=== PATIENT | male | born 1985 | race Caucasian/White ===

== ENCOUNTER 2017-01-12 22:23 | Emergency (ER) | payer BC ==
[2017-01-12 22:34] VITALS: BP 142/97
--- NOTE | 2017-01-12 23:42 | EDM.PDOC ---
ED HPI GENERAL MEDICAL PROBLEM - General Chief Complaint: ENT Problem Stated Complaint: SOFTBALL TO FACE POSS BROKEN NOSE Time Seen by Provider: 01/12/17 23:32 - History of Present Illness INITIAL COMMENTS - FREE TEXT/NARRATIVE: 31-year-old male presents emergency room with a nose injury. Shortly before arrival to the emergency room. She was playing softball he went to catch a ball that was hit his direction off of back it bounced up high in his him in the nose. He has some deformity and a nosebleed. Patient has not had problems with his nose in the past. Patient denies any other associated injuries. Last tetanus shot was 5-6 years ago. Nose Pain Score (Numeric/FACES): 3 - Related Data Allergies Allergy/AdvReac Type Severity Reaction Status Date / Time No Known Allergies Allergy Verified 01/12/17 22:34 Home Meds: Home Meds . [No Known Home Meds] 01/12/17 [History] Past Medical History - Past Health History Medical/Surgical History: Denies Medical/Surgical History Social & Family History - Tobacco Use Smoking Status *Q: Current Every Day Smoker Years of Tobacco use: 13 Packs/Tins Daily: 1 - Caffeine Use Caffeine Use: Reports: Coffee, Energy Drinks - Recreational Drug Use Recreational Drug Use: No ED ROS ENT - Review of Systems Review Of Systems: See Below Constitutional: Reports: No Symptoms HEENT: Reports: Nose Pain Respiratory: Reports: No Symptoms Cardiovascular: Reports: No Symptoms GI/Abdominal: Reports: No Symptoms ED EXAM, ENT - Physical Exam Exam: See Below Exam Limited By: No Limitations General Appearance: Alert, No Apparent Distress Eye Exam: Bilateral Eye: EOMI, Normal Inspection, PERRL Ears: Normal External Exam, Normal Canal, Hearing Grossly Normal, Normal TMs Nose: Nasal Deformity, Other (Initially the patient had bleeding out of both sides of his nose he was allowed to blow his nose clear this was then suctioned clear questionable septal hematoma seen on the right. He had no more bleeding after this he has deformity to the left significant swelling. Thorough palpation of the facial bones does not reveal any other tenderness. Orbital rims are nontender. The patient's injuries were localized to the bridge of the nose. This was cleaned up he had a few superficial abrasions on the right side of the bridge of the nose) Mouth/Throat: Normal Inspection, Normal Gums, Normal Lips, Normal Oropharynx, Normal Teeth, Other (No loose teeth) Head: Atraumatic, Normocephalic Neck: Normal Inspection, Supple, Non-Tender, Full Range of Motion. No: Lymphadenopathy (L), Lymphadenopathy (R) Respiratory/Chest: No Respiratory Distress, Lungs Clear, Normal Breath Sounds Cardiovascular: Regular Rate, Rhythm, No Edema, No Murmur Course - Vital Signs Last Recorded V/S: Last Vital Signs Temp 36.1 C 01/12/17 22:31 Pulse 92 01/12/17 22:31 Resp 16 01/12/17 22:31 BP 142/97 H 01/12/17 22:31 Pulse Ox 97 01/12/17 22:31 - Re-Assessments/Exams Free Text/Narrative Re-Assessment/Exam: 01/13/17 00:[address] however I already know he hasn't O's fracture I think the probability of another fracture is exceedingly low the patient agrees to hold off on this at this point. Departure - Departure Time of Disposition: 00:34 Disposition: Home, Self-Care 01 Clinical Impression: Nasal bone fx-closed - Discharge Information Instructions: Nasal Fracture, [id number] Referrals: PCP,None [Primary Care Provider] - Forms: ED Department Discharge Additional Instructions: Return to the emergency room with any questions or problems. Follow-up with an pearler Dr. Gunter in [place]. [phone]. You been given some pain medication [place] take one or 2 every 6 hours as needed for pain allow 12 hours after using this medication before driving or returning to work use ibuprofen as needed for pain during the day. You have been started on amoxicillin this is an antibiotic take one 3 times a day until all gone.
== END 2017-01-13 00:43 | disposition home or self-care (01) ==
LOC: JD.ED 22:23
DX: S02.2XXA Fracture of nasal bones, initial encounter for closed fracture (principal); F17.210 Nicotine dependence, cigarettes, uncomplicated; W21.07XA Struck by softball, initial encounter
CPT/HCPCS: 99283

== ENCOUNTER 2019-02-27 14:39 | Emergency (ER) | payer BC ==
[2019-02-27 14:48] VITALS: BP 137/88
--- NOTE | 2019-02-27 15:00 | EDM.PDOC ---
ED HPI GENERAL MEDICAL PROBLEM - General Chief Complaint: Chest Pain Stated Complaint: CHEST/UPPER ABDOMINAL PAIN Time Seen by Provider: 02/27/19 14:55 Source of Information: Reports: Patient History Limitations: Reports: No Limitations - History of Present Illness INITIAL COMMENTS - FREE TEXT/NARRATIVE: 33-year-old male presents to the ED with recurrent sharp stabbing pains primarily in the pit of the stomach lower retrosternal chest and then radiates up towards his throat. It never reaches past the stricture sternal manubrial junction. Not radiate through his back. States is for the most part sharp and stabbing and will last minutes or so. He however any heartburn or indigestion. He does not usually have to use Tums or Rolaids. Has never vomited from the intensity of the discomfort. He has no pain it wakes him up in the night in the epigastrium to suggest dyspepsia. Has been having sharp stabbing pains off and on for the last 3-4 days. States he does drink alcohol socially. His cough or sputum production. Denies fever or chills. Smokes one pack of cigarettes daily. No previous abdominal surgery. He has no sensation of needing to burp or belch to relieve the discomfort. He has no true odynophagia. Onset: Sudden Onset Date: 02/24/19 Duration: Day(s):, Getting Worse, Intermittent (Intermittent sharp stabbing anterior chest pains for the last 3 days), Waxing/Waning Location: Reports: Chest (Lower retrosternal chest epigastrium.) Quality: Reports: Sharp, Stabbing Severity: Moderate Improves with: Reports: None (Relates to 6 out of 10 when it comes.) Worsens with: Reports: None Context: Denies: Activity, Exercise, Lifting, Sick Contact, Trauma, Other Associated Symptoms: Reports: Chest Pain. Denies: Confusion, Cough (Lower retrosternal chest pain and epigastric pain), cough w sputum, Diaphoresis, Fever /Chills, Headaches, Loss of Appetite, Malaise, Nausea/Vomiting, Rash, Seizure, Shortness of Breath, Syncope Treatments [employer]: Reports: Other (see below) (None.) Middle Chest Pain Score (Numeric/FACES): 2 - Related Data Allergies Allergy/AdvReac Type Severity Reaction Status Date / Time No Known Allergies Allergy Verified 02/27/19 14:48 Home Meds: Home Meds . 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 No recent chest wall injuries.) ED ROS GENERAL - Review of Systems Review Of Systems: See Below Constitutional: Reports: No Symptoms HEENT: Reports: No Symptoms Respiratory: Denies: Shortness of Breath, Wheezing, Pleuritic Chest Pain, Cough , Sputum, Hemoptysis, Other Cardiovascular: Reports: Chest Pain. Denies: Blood Pressure Problem, Claudication, Dyspnea on Exertion, Edema (See history of present illness), Lightheadedness, Orthopnea, Palpitations, Syncope Endocrine: Reports: No Symptoms GI/Abdominal: Reports: Abdominal Pain (Epigastric abdominal discomfort.) : Reports: No Symptoms Musculoskeletal: Reports: No Symptoms Skin: Reports: No Symptoms Neurological: Reports: No Symptoms Psychiatric: Reports: No Symptoms Hematologic/Lymphatic: Reports: No Symptoms Immunologic: Reports: No Symptoms ED EXAM, GENERAL - Physical Exam Exam: See Below Exam Limited By: No Limitations General Appearance: Alert, WD/WN, Anxious, Other (Mildly anxious. I'll assign show temperature 37.2 with a pulse of 70 and sinus. Respiratory 16. BP well is 137/88. O2 sats 98% on room air) Eye Exam: Bilateral Eye: Normal Inspection (No scleral icterus.) Head: Atraumatic, Normocephalic Neck: Normal Inspection, Supple, Non-Tender, Full Range of Motion. No: Lymphadenopathy (L), Lymphadenopathy (R) Respiratory/Chest: No Respiratory Distress, Lungs Clear, Normal Breath Sounds, No Accessory Muscle Use. No: Wheezing Cardiovascular: Normal Peripheral Pulses, Regular Rate, Rhythm, No Edema, No Gallop, No Murmur, No Rub Peripheral Pulses: 3+: Posterior Tibial (L), Posterior Tibial (R), Dorsalis Pedis (L), Dorsalis Pedis (R) GI/Abdominal: Normal Bowel Sounds, Soft, No Organomegaly, No Mass, Tender, Other (Negative Keating sign. No organomegaly.). No: No Distention, No Abnormal Bruit, Pelvis Stable (He is mildly tender on palpation in the epigastrium only.) Back Exam: Normal Inspection, Full Range of Motion. No: CVA Tenderness (L) Extremities: Normal Inspection, Normal Range of Motion, Non-Tender, No Pedal Edema Neurological: Alert, Oriented, CN II-XII Intact, Normal Cognition, Normal Gait Psychiatric: Normal Affect, Normal Mood Skin Exam: Warm, Dry, Intact, Normal Color, No Rash EKG INTERPRETATION EKG Date: 02/27/19 Time: 15:11 Rhythm: NSR Rate (Beats/Min): 75 Carey: Normal P-Wave: Enlarged (Consider left atrial hypertrophy.) QRS: Other (Initial poor R-wave progression which may be due to lead placement.) ST-T: Other (Irregular baseline in V1 not used for analysis.) QT: Normal EKG Interpretation Comments: Borderline ECG Course - Vital Signs Last Recorded V/S: Last Vital Signs Temp 37.2 C 02/27/19 14:46 Pulse 70 02/27/19 14:46 Resp 16 02/27/19 14:46 BP 137/88 02/27/19 14:46 Pulse Ox 98 02/27/19 14:46 - Orders/Labs/Meds Orders: Active Orders 24 hr Category Date Time Status EKG Documentation Completion [RC] STAT Care 02/27/19 14:55 Active Labs: Laboratory Tests 02/27/19 02/27/19 02/27/19 Range/Units 15:10 15:10 15:10 WBC 6.50 (4.23-9.07) K/mm3 RBC 5.03 (4.63-6.08) M/mm3 Hgb 15.7 (13.7-17.5) gm/L Hct 46.0 (40.1-51.0) % MCV 91.5 (79.0-92.2) fl MCH 31.2 (25.7-32.2) pg MCHC 34.1 (32.2-35.5) g/dl RDW Std Deviation 43.6 (35.1-43.9) fL Plt Count 224 (163-337) K/mm3 MPV 11.8 (9.4-12.3) fl Neut % (Auto) 66.6 (34.0-67.9) % Lymph % (Auto) 22.3 (21.8-53.1) % Mathews % (Auto) 9.1 (5.3-12.2) % Eos % (Auto) 1.2 (0.8-7.0) Baso % (Auto) 0.5 (0.1-1.2) % Neut # (Auto) 4.33 (1.78-5.38) K/mm3 Lymph # (Auto) 1.45 (1.32-3.57) K/mm3 Mathews # (Auto) 0.59 (0.30-0.82) K/mm3 Eos # (Auto) 0.08 (0.04-0.54) K/mm3 Baso # (Auto) 0.03 (0.01-0.08) K/mm3 Sodium 143 (136-145) mEq/L Potassium 4.1 (3.5-5.1) mEq/L Chloride 104 (98-107) mEq/L Carbon Dioxide 30 (21-32) mEq/L Anion Gap 13.1 (5-15) BUN 12 (7-18) mg/dL Creatinine 0.9 (0.7-1.3) mg/dL Est Cr Clr Drug Dosing 128.14 mL/min Estimated GFR (MDRD) > 60 (>60) mL/min BUN/Creatinine Ratio 13.3 L (14-18) Glucose 78 (74-106) mg/dL Calcium 9.0 (8.5-10.1) mg/dL Magnesium 2.2 (1.8-2.4) mg/dl Total Bilirubin 0.6 (0.2-1.0) mg/dL AST 19 (15-37) U/L ALT 38 (16-63) U/L Alkaline Phosphatase 92 (46-116) U/L Troponin I < 0.017 (0.00-0.056) ng/mL C-Reactive Protein 0.2 (<1.0) mg/dL Total Protein 8.2 (6.4-8.2) g/dl Albumin 4.2 (3.4-5.0) g/dl Globulin 4.0 gm/dL Albumin/Globulin Ratio 1.1 (1-2) Lipase 95 (73-393) U/L - Radiology Interpretation Free Text/Narrative:: 33-year-old male presents to the ED with intermittent sharp stabbing epigastric lower retrosternal chest pains for the last 3 days. He has come and gone may last up to 10 minutes. He has not appreciated any odynophagia. No nausea vomiting or hematemesis. No burning discomfort to suggest heartburn. No difficulties breathing. Denies cough or sputum production. Lungs are clear on auscultation heart is sinus with no murmurs identified. He is somewhat tender in the epigastrium only on examination. Plan routine labs. This include a serum troponin. Two-view chest x-ray to be done. I suspect the etiology is esophageal spasm at the lower esophageal sphincter. - Re-Assessments/Exams Free Text/Narrative Re-Assessment/Exam: 02/27/19 15:53 two-view chest x-ray is within normal limits as well. Both pulmonary arteries are easily visible. 02/27/19 15:56 Labs reveal a normal white count at 6.50 with auto differential showing 66% neutrophils. Hemoglobin is 15.7 with hematocrit of 46.0. Reticulocyte count 224,000. Sodium 143 with potassium of 4.1. Chloride 104 the bicarbonate 30. Anion gap is 13.1 B1 is 12 with a creatinine of 0.9. GFR is greater than 60. Glucose 78. Calcium 9.0 magnesium 2.2. Liver function normal C- reactive protein is 0.2. Normal at 95. 02/27/19 16:21 troponin came back at less than 0.017. Departure - Departure Time of Disposition: 16:25 Disposition: Home, Self-Care 01 Condition: Fair Clinical Impression: Non-cardiac chest pain, Esophagitis Instructions: Esophagitis, Nonspecific Chest Pain, [id number] Referrals: Doris Limon NP [Primary Care Provider] - Forms: ED Department Discharge Additional Instructions: Evaluation the emergency room today in regards to recurrent sharp stabbing pain felt in the pelvis stomach and rating up into the mid chest at times for the last 3 days. No associated feeling of need to burp or belch and no heartburn symptoms. Complete cardiac workup was carried out in the ED and reveals a normal ECG or heart tracing. Two-view of the chest also is completely normal. Aorta appears to be normal with no sign of aneurysm. Markers for heart attack and any other inflammation in regards to the heart were all negative. There is no evidence of heart related illness . I suspect the pain is coming from spasm of the lower food pipe or esophagus were joins onto the stomach right in the pit of the stomach. It is likely due to inflammation from reflux of acid contents some time in the 2-3 days before you started having pain. Suggest being careful with alcohol for the next week or so. Suggest using Zantac 150 milligrams twice daily bedtime and morning for the next 10 days to allow the food pipe to heal and then use it on an as-needed basis. - My Orders Last 24 Hours: My Active Orders 02/27/19 14:55 EKG Documentation Completion [RC] STAT - Assessment/Plan Last 24 Hours: My Active Orders 02/27/19 14:55 EKG Documentation Completion [RC] STAT
--- NOTE | 2019-02-27 15:32 | CR ---
Chest: Two views of the chest were obtained. Comparison: No previous chest x-ray. Heart size and mediastinum are normal. Lungs are clear. Bony structures are unremarkable. Impression: 1. Nothing acute is seen on two-view chest x-ray. Diagnostic code #1
== END 2019-02-27 16:36 | disposition home or self-care (01) ==
LOC: JD.ED 14:39
DX: K20.9 Esophagitis, unspecified (principal); F17.210 Nicotine dependence, cigarettes, uncomplicated
CPT/HCPCS: 36415; 71046; 71046-26; 80053; 83690; 83735; 84484; 85025; 86140; 93005; 93010; 99283; 99285-25

== ENCOUNTER 2025-05-21 13:12 | Emergency (ER) | payer BC ==
[2025-05-21] MEDS ORDERED: Sodium Chloride 0.9% 10 ML Syringe FLUSH PRN (13:38)
[2025-05-21] MEDS: Sodium Chloride 0.9% 10 ML Syringe FLUSH PRN (13:40)
[2025-05-21] MEDS: Iopamidol 755 Mg/ML 100 ML Bottle IVPUSH ONE (13:40)
[2025-05-21 13:54] LABS: BASOPHILS ABSOLUTE AUTO 0.0 K/mm3 (0.0-0.2); BASOPHILS PERCENT AUTO 0.7 % (0.0-1.0); EOSINOPHILS ABSOLUTE AUTO 0.1 K/mm3 (0.0-0.4); EOSINOPHILS PERCENT AUTO 1.3 % (0.0-6.0); IMMATURE GRAN ABSOLUTE AUTO 0.01 K/mm3 (0.00-0.05); IMMATURE GRAN PERCENT AUTO 0.2 % (0.0-0.4); LYMPHOCYTES ABSOLUTE AUTO 1.5 K/mm3 (1.0-4.8); LYMPHOCYTES PERCENT AUTO 27.3 % (24.0-44.0); MEAN PLATELET VOLUME 10.8 fl (9.4-12.4); MONOCYTES ABSOLUTE AUTO 0.4 K/mm3 (0.0-0.8); MONOCYTES PERCENT AUTO 6.8 % (0.0-8.0); NEUTROPHILS ABSOLUTE AUTO 3.5 K/mm3 (1.8-7.7); NEUTROPHILS PERCENT AUTO 63.7 % (41.0-71.0); NRBC ABSOLUTE 0.00 (0.00-0.02); NRBC PERCENT 0.0 % (0.0-0.2); PLATELET COUNT,PLT 250 K/mm3 (150-400); RED BLOOD CELL COUNT 4.89 M/mm3 (4.52-5.90); WHITE BLOOD CELL COUNT,WBC 5.43 K/mm3 (3.9-11.3)
[2025-05-21 13:59] LABS: INR 1.0
[2025-05-21 14:00] LABS: PTT,PARTIAL THROMBOPLSTIN TIME 25.1 SECONDS (21.7-31.4)
[2025-05-21 14:03] LABS: A/G RATIO 1.1 (1-2); ALANINE AMINOTRANSFERASE,ALT 30 U/L (16-63); ASPARTATE AMNIOTRANSFERASE,AST 21 U/L (15-37); BILIRUBIN TOTAL 0.9 mg/dL (0.2-1.0); BLOOD UREA NITROGEN,BUN 6 mg/dL (7-18); CARBON DIOXIDE,CO2 28 mEq/L (21-32); CHLORIDE,CL 105 mEq/L (98-107); CREATININE 0.8 mg/dL (0.7-1.3); EST CRCL DRUG DOSING (CG) 134.72 mL/min; ESTIMATED GFR 115 mL/min (>60); GLUCOSE RANDOM 127 mg/dL (70-99); POTASSIUM,K 4.2 mEq/L (3.5-5.1); PROTEIN TOTAL,TP 8.0 g/dl (6.4-8.2); SODIUM,NA 142 mEq/L (136-145); TROPONIN I HIGH SENSITIVITY < 4 pg/mL (<=76)
[2025-05-21 19:21] VITALS: BP 145/91; PULSE 64
== END 2025-05-21 19:09 | disposition home or self-care (01) ==
LOC: JD.ED 13:12
DX: R20.0 Anesthesia of skin (principal)
CPT/HCPCS: 36415; 70450; 70496; 70498; 70551; 80053; 82947; 84484; 85025; 85610; 85730; 93005; 93246; 99284; Q9967